=== PATIENT | male | born 1985 | race Caucasian/White ===

== ENCOUNTER 2016-10-13 06:20 | Emergency (ER) | payer MEDICAID, SELFPAY ==
[~2016-10-13] VITALS: Ht 182.9 cm; Wt 86.0 kg
[2016-10-13] MEDS ORDERED: AMOX500C PO (07:08)
[2016-10-13] MEDS ORDERED: NORCOTAB PO (07:08)
[2016-10-13] MEDS ORDERED: AMOXICILLIN 500 MG CAP PO ONE (07:15)
[2016-10-13] MEDS ORDERED: IBUPROFEN 800 MG TAB PO ONE (07:15)
[2016-10-13 07:21] VITALS: BP 148/86
== END 2016-10-13 07:51 | disposition home or self-care (01) ==
LOC: M ED 06:20
DX: K02.9 Dental caries, unspecified (principal); Z72.0 Tobacco use

== ENCOUNTER → 2017-12-18 | Outpatient (CLI) | payer OTHER | LOC: M PLARAD 10:51 | DX: G51.4 Facial myokymia (principal) | CPT/HCPCS: 70553 ==

== ENCOUNTER 2017-12-22 12:48 | Emergency (ER) | payer OTHER | END 2017-12-22 13:48 | disposition home or self-care (01) | LOC: M ED 12:48 | DX: K04.7 Periapical abscess without sinus (principal); K02.9 Dental caries, unspecified; Z87.891 Personal history of nicotine dependence | CPT/HCPCS: 99282 ==

== ENCOUNTER 2018-06-11 19:58 | Emergency (ER) | payer OTHER ==
[~2018-06-11] VITALS: Ht 182.9 cm; Wt 90.9 kg
[2018-06-11 19:58] VITALS: BP 132/76
[~2018-06-11 19:58] MED LIST: AMOX500C PO; AUGM875T28 PO; HYDR-3715 PO; IBUP-1022 PO
== END 2018-06-11 22:14 | disposition left against medical advice (07) ==
LOC: M ED 19:58
DX: R10.9 Unspecified abdominal pain (principal); Z53.21 Procedure and treatment not carried out due to patient leaving prior to being seen by health care provider

== ENCOUNTER → 2018-08-11 | Outpatient (CLI) | payer OTHER ==
--- NOTE | 2018-08-11 19:07 | REP ---
Right hand five views : There is no fracture or dislocation. Mineralization and joint spaces are normal. There are no calcifications or foreign bodies. Impression: Negative right hand Small bone cysts are incidentally noted in the head of the third digit metacarpal. . Electronically Signed by Rex Garza MD 08/11/2018 06:59 P
== END ==
LOC: M WUC 18:17
PROVIDERS: ATTEND Physician Assistant
DX: M79.641 Pain in right hand (principal)

== ENCOUNTER → 2018-11-08 | Outpatient (CLI) | payer OTHER ==
--- NOTE | 2018-11-09 01:51 | REP ---
Clinical: Trauma with pain . Technique: AP, lateral, bilateral oblique views. Findings: The carpal bones, surrounding osseous structures, soft tissues, and joint spaces are normal. There is no evidence for acute fracture or dislocation. No subcutaneous emphysema or radiodense foreign body. Impression: Age-appropriate right wrist series. No acute fracture or dislocation Electronically Signed by Fareed Munguia MD 11/09/2018 01:43 A
--- NOTE | 2018-11-09 03:37 | REP ---
Clinical: Pain. Technique: AP, lateral, bilateral oblique views of the right hand. Findings: Osseous structures, joint spaces, and surrounding soft tissues appear normal for age. No acute fracture dislocation. No overt arthritic changes. Impression: Age-appropriate right hand radiographs. Electronically Signed by Fareed Munguia MD 11/09/2018 03:28 A
== END ==
LOC: M WUC 12:41
PROVIDERS: ATTEND Nurse Practitioner Family
DX: M79.644 Pain in right finger(s) (principal)

== ENCOUNTER 2018-12-28 11:21 | Emergency (ER) | payer OTHER ==
[~2018-12-28] VITALS: Ht 182.9 cm; Wt 84.1 kg
[2018-12-28] MEDS ORDERED: excedrine PO (11:50)
[2018-12-28] MEDS ORDERED: IBUP200T45 PO (11:50)
[2018-12-28] MEDS ORDERED: LIDOCAINE 2% W/ EPINEPHRINE 1.7 ML DENTAL INJ SM ONE (12:45)
[2018-12-28] MEDS ORDERED: BENZOCAINE 20% GEL 9GM TUBE (ANBESOL MAX STRENGTH) TOP ONE (12:45)
[2018-12-28] MEDS ORDERED: AUGM875T28 PO (13:12)
[2018-12-28] MEDS ORDERED: IBUP-1022 PO (13:12)
[2018-12-28] MEDS ORDERED: NORC1TAB7 PO (13:12)
[2018-12-28 13:25] VITALS: BP 126/92
== END 2018-12-28 13:29 | disposition home or self-care (01) ==
LOC: M ED 11:21
DX: K02.9 Dental caries, unspecified (principal); K04.7 Periapical abscess without sinus; Z87.891 Personal history of nicotine dependence

== ENCOUNTER → 2019-02-03 | Outpatient (REF) | payer OTHER ==
[~2019-02-03] MED LIST changes: +IBUP200T45 PO; +NORC1TAB7 PO; +excedrine PO
[2019-02-03 18:05] LABS: BASO # 0.1 10^3/uL (0.0-0.2); BASO % 0.4 % (0.0-1.0); EOS # 0.1 10^3/uL (0.0-0.5); EOS % 1.1 % (0.0-3.0); HEMATOCRIT 48.1 % (42.0-52.0); HEMOGLOBIN 15.6 g/dl (13.5-17.5); LYMPH # 2.8 10^3/uL (1.5-5.0); LYMPH % 22.7 % (24.0-44.0); MEAN CORPUSCULAR HEMOGLOBIN 29.6 pg (27.0-33.0); MEAN CORPUSCULAR HGB CONC 32.4 g/dl (32.0-36.5); MEAN CORPUSCULAR VOLUME 91.3 fl (80.0-96.0); MONO # 0.7 10^3/uL (0.0-0.8); MONO % 5.8 % (0.0-5.0); NEUTROPHILS # 8.6 10^3/uL (1.5-8.5); NEUTROPHILS % 69.2 % (36.0-66.0); PLATELET COUNT, AUTOMATED 268 10^3/uL (150-450); RED BLOOD COUNT 5.27 10^6/uL (4.30-6.10); WHITE BLOOD COUNT 12.5 10^3/uL (4.0-10.0)
[2019-02-03 18:22] LABS: ALT/SGPT 56 U/L (12-78); BILIRUBIN,TOTAL 0.5 MG/DL (0.2-1.0); BLOOD UREA NITROGEN 11 MG/DL (7-18); CALCIUM LEVEL 9.9 MG/DL (8.5-10.1); CARBON DIOXIDE LEVEL 30 MEQ/L (21-32); CHLORIDE LEVEL 101 MEQ/L (98-107); CHOLESTEROL LEVEL 224 MG/DL (<200); CREATININE FOR GFR 1.01 MG/DL (0.70-1.30); FREE T4 0.83 NG/DL (0.76-1.46); GLOMERULAR FILTRATION RATE > 60.0 (>60); GLUCOSE, FASTING 87 MG/DL (70-100); HDL CHOLESTEROL 35 MG/DL (>40); LDL CHOLESTEROL 132 MG/DL (<100); NON-HDL-C 189 MG/DL; SODIUM LEVEL 138 MEQ/L (136-145); TOTAL 25(OH) VITAMIN D 16.9 NG/ML (30.0-100.0); TOTAL PROTEIN 7.9 GM/DL (6.4-8.2); TRIGLYCERIDES LEVEL 284 MG/DL (<150)
[2019-02-03 18:29] LABS: HEMOGLOBIN A1c 5.3 %
== END ==
LOC: M LAB REF 17:16
PROVIDERS: ATTEND Nurse Practitioner Family
DX: Z00.00 Encounter for general adult medical examination without abnormal findings (principal); Z13.220 Encounter for screening for lipoid disorders; Z23 Encounter for immunization; F17.200 Nicotine dependence, unspecified, uncomplicated; Z68.29 Body mass index [BMI] 29.0-29.9, adult; E66.3 Overweight

== ENCOUNTER → 2019-07-14 | Outpatient (REF) | payer OTHER, MEDICAID ==
[2019-07-14 20:13] LABS: BASO # 0.1 10^3/uL (0.0-0.2); BASO % 0.3 % (0.0-1.0); EOS # 0.2 10^3/uL (0.0-0.5); EOS % 0.9 % (0.0-3.0); HEMATOCRIT 49.3 % (42.0-52.0); HEMOGLOBIN 15.8 g/dl (13.5-17.5); LYMPH # 3.1 10^3/uL (1.5-5.0); LYMPH % 12.6 % (24.0-44.0); MEAN CORPUSCULAR VOLUME 90.6 fl (80.0-96.0); MONO # 1.3 10^3/uL (0.0-0.8); MONO % 5.3 % (0.0-5.0); NEUTROPHILS # 19.7 10^3/uL (1.5-8.5); NEUTROPHILS % 80.1 % (36.0-66.0); PLATELET COUNT, AUTOMATED 335 10^3/uL (150-450); RED BLOOD COUNT 5.44 10^6/uL (4.30-6.10); WHITE BLOOD COUNT 24.6 10^3/uL (4.0-10.0)
[2019-07-14 20:39] LABS: ALBUMIN 4.1 GM/DL (3.2-5.2); ALT/SGPT 41 U/L (12-78); BILIRUBIN,TOTAL 0.3 MG/DL (0.2-1.0); BLOOD UREA NITROGEN 10 MG/DL (7-18); CALCIUM LEVEL 9.3 MG/DL (8.5-10.1); CARBON DIOXIDE LEVEL 25 MEQ/L (21-32); CHLORIDE LEVEL 103 MEQ/L (98-107); CHOLESTEROL LEVEL 241 MG/DL (<200); CHOLESTEROL RISK RATIO 7.531 (<5); CREATININE FOR GFR 0.85 MG/DL (0.70-1.30); FREE T4 1.12 NG/DL (0.76-1.46); GLOMERULAR FILTRATION RATE > 60.0 (>60); GLUCOSE, FASTING 69 MG/DL (70-100); HDL CHOLESTEROL 32 MG/DL (>40); LDL CHOLESTEROL 154 MG/DL (<100); NON-HDL-C 209 MG/DL; POTASSIUM SERUM 4.4 MEQ/L (3.5-5.1); SODIUM LEVEL 140 MEQ/L (136-145); TOTAL 25(OH) VITAMIN D 20.2 NG/ML (30.0-100.0); TOTAL PROTEIN 7.6 GM/DL (6.4-8.2); TRIGLYCERIDES LEVEL 275 MG/DL (<150)
[2019-07-14 21:39] LABS: HEMOGLOBIN A1c 5.7 %
[2019-07-16 16:08] LABS: TESTOSTERONE FREE (DIRECT) 14.5 pg/mL (8.7-25.1)
== END ==
LOC: M LAB REF 17:09
PROVIDERS: ATTEND Nurse Practitioner Family
DX: Z13.220 Encounter for screening for lipoid disorders (principal); E66.3 Overweight

== ENCOUNTER → 2019-08-14 | Outpatient (CLI) | payer OTHER, MEDICAID ==
--- NOTE | 2019-08-14 12:42 | REP ---
The clinical: Trauma. Technique: Frontal view of the chest with four views of the left hemithorax. Findings: Frontal view of the chest demonstrates no acute cardiopulmonary process. Multiple views of the left hemithorax demonstrates no obvious acute rib fracture or pathology. Impression: Normal left rib series Electronically Signed by Fareed Munguia MD 08/14/2019 12:34 P
--- NOTE | 2019-08-14 12:44 | REP ---
Clinical: thoracic pain. Technique: AP, lateral, and bilateral oblique views of the thoracic spine. Findings: Alignment and kyphosis is maintained. Vertebral bodies intact. No acute fracture / compression injury or subluxation. No degenerative changes. Paravertebral soft tissues are normal. Impression: Normal thoracic spine series. Electronically Signed by Fareed Munguia MD 08/14/2019 12:36 P
== END ==
LOC: M WUC 11:45
PROVIDERS: ATTEND Physician Assistant
DX: R07.89 Other chest pain (principal); M54.6 Pain in thoracic spine

== ENCOUNTER → 2020-03-30 | Outpatient (REF) | payer OTHER, MEDICAID | LOC: M WUC 19:01 | PROVIDERS: ATTEND Physician Assistant | DX: R30.0 Dysuria (principal) ==